=== PATIENT | male | born 1970 | race Caucasian/White ===

== ENCOUNTER 2018-06-29 09:51 | Day surgery (SDC) | payer MEDICAID, OTHER ==
[2018-06-29] MEDS ORDERED: Sodium Chloride 0.9% 10 ML Syringe FLUSH PRN (10:00)
[2018-06-29] MEDS ORDERED: Lactated Ringers 1,000 ML IV SCH (10:00)
[2018-06-29] MEDS ORDERED: Propofol 200 MG/20 ML SDV ONE (10:05)
[2018-06-29] MEDS ORDERED: Midazolam 1 MG/ML 2 ML SDV ONE (10:05)
[2018-06-29] MEDS ORDERED: Midazolam 1 MG/ML 2 ML SDV IV ONE (11:04)
[2018-06-29] MEDS ORDERED: Propofol 200 MG/20 ML SDV IV ONE (11:04)
--- NOTE | 2018-06-29 11:21 | PCM.OPNOTE ---
- General Post-Op/Procedure Note Date of Surgery/Procedure: 06/29/18 Operative Procedure(s): Colonoscopy Findings: Normal colonoscopy Pre Op Diagnosis: Rectal bleeding Post-Op Diagnosis: Same Anesthesia Technique: MAC Primary Surgeon: Meredith Pan Complications: None Condition: Good Free Text/Narrative:: INFORMED CONSENT: Patient is here today for elective colonoscopy. All aspects of this procedure have been discussed with the patient. All possible complications also, including possibility of perforation, infection, pain, bleeding and unknown complications. In the event of perforation patient may need to have abdominal exploration, colon resection, colostomy and even was discussed. Anesthetic complications were handled by anesthesia department. The patient understands fully well. Patient did not have any further questions for me at the end of my interview. The patient wishes for me to proceed. PREOPERATIVE DIAGNOSIS/INDICATIONS: [Rectal bleeding] POSTOPERATIVE DIAGNOSIS: [Normal colonoscopy] INSTRUMENT USED: Olympus videocolonoscope. ASA CLASSIFICATION: [2] ANESTHESIA: Continuous EKG, oximetry and intermittent blood pressure and respiratory monitoring were performed throughout the procedure. IV Versed and Fentanyl were administered. PROCEDURE PERFORMED: Colonoscopy POSITIONS OF PATIENT: Left lateral. RECTUM: Normal. SIGMOID COLON: Normal. DESCENDING COLON: Normal. SPLENIC FLEXURE: Normal. TRANSVERSE COLON: Normal. HEPATIC FLEXURE: Normal. ASCENDING COLON: Normal. CECUM: Normal. ILEOCECAL VALVE: Normal. BIOPSY: None. TOLERANCE: Excellent. COMPLICATIONS: None.
== END 2018-06-29 12:55 | disposition home or self-care (01) ==
LOC: KA.SDS 09:51
PROVIDERS: ATTEND Family Medicine
DX: K62.5 Hemorrhage of anus and rectum (principal); E78.5 Hyperlipidemia, unspecified; K42.9 Umbilical hernia without obstruction or gangrene; G47.39 Other sleep apnea; R53.83 Other fatigue; E66.9 Obesity, unspecified; Z68.30 Body mass index [BMI] 30.0-30.9, adult; Z91.018 Allergy to other foods; Z80.0 Family history of malignant neoplasm of digestive organs; Z79.82 Long term (current) use of aspirin; Z79.899 Other long term (current) drug therapy; Z91.09 Other allergy status, other than to drugs and biological substances
CPT/HCPCS: J2250; J2704